=== PATIENT | female | born 1970 | race Caucasian/White ===

== ENCOUNTER 2017-03-24 18:03 | Emergency (ER) | payer OTHER ==
[~2017-03-24] VITALS: Ht 165.1 cm; Wt 105.6 kg
[~2017-03-24 18:03] MED LIST: BACTRIM,SEPT1 TABLET PO; BUSPAR10 MG PO; CLONAZEPAM0.5 MG PO; COGENTIN0.5 MG PO; DEPAKOTE ER250 MG PO; DIVALPROEX SOD500 M1 PO; FLEET MINERAL133 ML PR; GEODON40 MG PO; INDOCIN50 MG PO; MIRALAX17 GM PO; PROPRANOLOL HCL10 MG PO; QUETIAPINE FUM100 MG PO; QUETIAPINE FUM400 MG PO; SEROQUEL XR200 MG PO; TRAZODONE HCL50 MG PO; ZITHROMAX Z-PA250 MG PO
[2017-03-24 19:31] LABS: HEMATOCRIT 40.3 % (36.0-46.0); HEMOGLOBIN 13.4 G/DL (11.9-15.5); MCH 32.6 PG (29.0-34.0); MCHC 33.3 G/DL (30.0-36.0); MCV 98.1 FL (83-99); PLATELET COUNT 167 K/uL (156-360); RBC DIS.WIDTH-CV 13.7 % (11.8-14.6); RBC DIS.WIDTH-SD 49.9 % (39-53); RED BLOOD COUNT 4.11 M/uL (3.80-5.20); WHITE BLOOD COUNT 6.7 K/uL (4.1-10.2)
[2017-03-24 19:34] LABS: APPEARANCE SL.HAZY ((CLEAR)); BILIRUBIN NEGATIVE; BLOOD SMALL; COLOR YELLOW ((YELLOW)); GLUCOSE (STRIP) NEGATIVE; KETONES NEGATIVE; LEUKOCYTES MODERATE; NITRITE NEGATIVE; PROTEIN (STRIP) NEGATIVE; SPECIFIC GRAVITY 1.018 (1.000-1.030); UROBILINOGEN 0.2 MG/DL (0.2-1.0)
[2017-03-24 19:40] LABS: BACTERIA NONE SEEN /HPF; EPITHELIAL CELLS 1+ /HPF; MUCUS TRACE /LPF; RED BLOOD CELLS 0-5 /HPF (0-5); UCUL ADDED? NO; WHITE BLOOD CELLS 0-5 /HPF (0-5)
[2017-03-24 19:42] LABS: CHLORIDE 107 mEq/L (99-109); SODIUM 142 mEq/L (136-147)
[2017-03-24 19:44] LABS: GLUCOSE 108 mg/dL (70-99)
[2017-03-24 19:48] LABS: CREATININE 0.8 mg/dL (0.6-1.3); GFR ESTIMATE (CALCULATED) > 59 mL/min/
[2017-03-24 19:49] LABS: UREA NITROGEN (BUN) 22 mg/dL (9-23)
[2017-03-24 21:57] LABS: TROP-I INTERPRETATION NEGATIVE; TROPONIN-I < 0.01 ng/mL (0.0-0.30)
[2017-03-24 23:12] VITALS: BP 126/83
== END 2017-03-24 23:12 | disposition home or self-care (01) ==
LOC: EME 18:03
PROVIDERS: Emergency Medicine
DX: R60.0 Localized edema (principal); F17.200 Nicotine dependence, unspecified, uncomplicated; F41.9 Anxiety disorder, unspecified; F31.9 Bipolar disorder, unspecified; Z88.1 Allergy status to other antibiotic agents
CPT/HCPCS: 71020; 80048; 81003; 83880; 84484; 85027; 93005; 99281; 99284